=== PATIENT | female | born 1975 | race Caucasian/White ===

== ENCOUNTER → 2020-12-18 | Day surgery (SDC) | payer MEDICARE ==
[~2020-12-18] VITALS: Ht 167.6 cm; Wt 83.9 kg
[~2020-12-18] MED LIST: ALEVE220 MG PO; ALPRAZOLAM2 MG PO; CEFUROXIME500 MG PO; ESCITALOPRAM OX10 MG PO; HYDROCHLOROTHIA25 MG PO; HYDROCODON-ACE1 EAC6 PO; HYDROCODONE-AC1 EAC1 PO; LISINOPRIL5 MG PO; NEURONTIN800 MG PO; ZOLPIDEM TARTRA10 MG PO
[2020-12-18 07:51] LABS: HEMOGLOBIN 13.7 gm/dl (12.3-15.3); RED BLOOD COUNT 4.55 M/UL (4.00-5.10); WHITE BLOOD COUNT 8.2 K/UL (4.5-11.0)
== END | disposition home or self-care (01) ==
LOC: OR 07:09
PROVIDERS: Orthopaedic Surgery
DX: S83.281A Other tear of lateral meniscus, current injury, right knee, initial encounter (principal); R60.9 Edema, unspecified; I10 Essential (primary) hypertension; F41.8 Other specified anxiety disorders; F17.290 Nicotine dependence, other tobacco product, uncomplicated; K21.9 Gastro-esophageal reflux disease without esophagitis; R32 Unspecified urinary incontinence; W19.XXXA Unspecified fall, initial encounter; Z84.1 Family history of disorders of kidney and ureter; Z82.69 Family history of other diseases of the musculoskeletal system and connective tissue; F41.0 Panic disorder [episodic paroxysmal anxiety]; Z88.0 Allergy status to penicillin; Z79.899 Other long term (current) drug therapy; Z88.8 Allergy status to other drugs, medicaments and biological substances
CPT/HCPCS: 36415; 80048; 85025; J0171; J1100; J1170; J1885; J2001; J2250; J2405; J2704; J3010; J7120

== ENCOUNTER 2020-12-23 17:42 | Emergency (ER) | payer MEDICARE ==
[~2020-12-23 17:42] MED LIST changes: -CEFUROXIME500 MG PO
[2020-12-23 19:38] LABS: HEMOGLOBIN 15.3 gm/dl (12.3-15.3); RED BLOOD COUNT 4.96 M/UL (4.00-5.10); WHITE BLOOD COUNT 8.8 K/UL (4.5-11.0)
[2020-12-23 19:56] LABS: BUN/CREATININE RATIO 18 (0-10)
== END 2020-12-23 20:41 | disposition left against medical advice (07) ==
LOC: ER1 17:42
PROVIDERS: Emergency Medicine
DX: M25.561 Pain in right knee (principal); I10 Essential (primary) hypertension; F17.290 Nicotine dependence, other tobacco product, uncomplicated; Z88.0 Allergy status to penicillin; Z88.5 Allergy status to narcotic agent; Z79.899 Other long term (current) drug therapy; Z53.20 Procedure and treatment not carried out because of patient's decision for unspecified reasons
CPT/HCPCS: 36415; 80053; 85025; 85379; 85610; 85730; 99283

== ENCOUNTER 2021-03-30 13:18 | Inpatient (IN) | payer MEDICARE ==
[~2021-03-30] VITALS: Ht 167.6 cm; Wt 83.9 kg
[2021-03-30 15:36] LABS: HEMOGLOBIN 13.2 gm/dl (12.3-15.3); RED BLOOD COUNT 4.45 M/UL (4.00-5.10); WHITE BLOOD COUNT 4.9 K/UL (4.5-11.0)
[2021-03-30 16:13] LABS: BUN/CREATININE RATIO 27 (0-10)
[2021-03-31 03:15] LABS: WHITE BLOOD COUNT 5.6 K/UL (4.5-11.0)
[2021-03-31 03:16] LABS: HEMOGLOBIN 11.1 gm/dl (12.3-15.3); RED BLOOD COUNT 3.7 M/UL (4.00-5.10)
[2021-03-31 03:50] LABS: BUN/CREATININE RATIO 19 (0-10)
--- NOTE | 2021-04-01 01:31 | NUR ---
[facility] CALLED FOR UPDATE.
[2021-04-01 04:10] LABS: RED BLOOD COUNT 3.69 M/UL (4.00-5.10)
[2021-04-01 04:44] LABS: BUN/CREATININE RATIO 10 (0-10)
--- NOTE | 2021-04-01 18:34 | NUR ---
REPORT CALLED TO CHEL FRANKEL AT [facility] IN [place].
[2021-04-01] MEDS ORDERED: CEFUROXIME500 MG PO (18:55)
--- NOTE | 2021-04-01 19:19 | NUR ---
[facility] NOTIFIED
--- NOTE | 2021-04-01 19:21 | NUR ---
DAY SHIFT [facility] CARLOS CALLED REPORT TO [facility] NURSE BEFORE HE LEFT SHIFT.
== END 2021-04-01 20:00 | DRG 917 ==
LOC: ER1 13:18 → PROG CARE 17:43 → CDU 17:43 → PROG CARE 20:46 → MED SURG 4 03-31 18:12
PROVIDERS: Emergency Medicine; Family Medicine; Internal Medicine; Physician Assistant; ADMIT Internal Medicine
DX: T42.8X2A Poisoning by antiparkinsonism drugs and other central muscle-tone depressants, intentional self-harm, initial encounter (principal); J18.9 Pneumonia, unspecified organism; R45.851 Suicidal ideations; Y92.9 Unspecified place or not applicable; R10.9 Unspecified abdominal pain; H54.61 Unqualified visual loss, right eye, normal vision left eye; I10 Essential (primary) hypertension; Z79.899 Other long term (current) drug therapy; R00.0 Tachycardia, unspecified; Z96.642 Presence of left artificial hip joint; Z88.0 Allergy status to penicillin; F17.290 Nicotine dependence, other tobacco product, uncomplicated; F19.10 Other psychoactive substance abuse, uncomplicated; E05.90 Thyrotoxicosis, unspecified without thyrotoxic crisis or storm
CPT/HCPCS: 51701; 70450; 71045; 74018; 80053; 80307; 81001; 82550; 82553; 83605; 83735; 83874; 84100; 84439; 84443; 84484; 84703; 85025; 87040; 93005; 96374; 96375; 99285; J0456; J0696; J2310; J7030; U0002

== ENCOUNTER 2021-07-27 10:25 | Emergency (ER) | payer MEDICARE ==
[~2021-07-27 10:25] MED LIST changes: +CEFUROXIME500 MG PO
== END 2021-07-27 11:40 | disposition home or self-care (01) ==
LOC: ER1 10:25
DX: U07.1 COVID-19 (principal); I10 Essential (primary) hypertension; Z88.0 Allergy status to penicillin; Z88.5 Allergy status to narcotic agent
CPT/HCPCS: 99283; U0003